=== PATIENT | male | born 1960 | race American Indian/Alaskan Native ===

== ENCOUNTER 2021-10-28 14:23 | Inpatient (IN) | payer MEDICARE, OTHER ==
[2021-10-28] MEDS: INSULIN LISPRO 100 UNIT/ML SUB-Q SCH (23:15)
[2021-10-29 05:06] LABS: Basophils % (Auto) 0.8 % (0.0-1.8); Eosinophils # (Auto) 0.1 K/mm3 (0.0-0.4); Eosinophils % (Auto) 1.4 % (0.0-4.3); Hematocrit 36.6 % (35.5-45.6); Hemoglobin 11.5 gm/dl (11.8-15.2); Lymphocytes # (Auto) 1.6 K/mm3 (1.2-5.4); Lymphocytes % (Auto) 27.2 % (13.4-35.0); Mean Corpuscular HGB Conc 32 % (32-34); Mean Corpuscular Volume 81 fl (84-94); Monocytes # (Auto) 0.6 K/mm3 (0.0-0.8); Monocytes % (Auto) 9.9 % (0.0-7.3); Red Blood Count 4.53 M/mm3 (3.65-5.03)
[2021-10-29 05:16] LABS: Alanine Aminotransferase 10 units/L (7-56); Albumin 4.1 g/dL (3.9-5); BUN/Creatinine Ratio 16; Blood Urea Nitrogen 19 mg/dL (9-20); Calcium 9.1 mg/dL (8.4-10.2); Chol/HDL Ratio 3.33 %; HDL Cholesterol 51 mg/dL (40-59); Hemolysis Index 9; LDL Cholesterol,Direct 105 mg/dL (50-130)
[2021-10-29 06:27] LABS: Platelet Count 205 K/mm3 (140-440)
[2021-10-29] MEDS: INSULIN LISPRO 100 UNIT/ML SUB-Q SCH ×4 (07:30→21:31)
[2021-10-29] MEDS ORDERED: SILDENAFIL CITRATE 50 MG PO PRN (08:44)
--- NOTE | 2021-10-29 08:44 | History and Physical Report ---
GP History & Physical - History of Present Illness Date of admission: 10/28/21 Date of Examination: 10/29/21 Reason for Admission: Danger to self, Failure of Outpatient Treatment, Severe anxiety/depression History of Present Illness: HPI: PT C/O THAT IS TRYING TO HURT HIM, HX OF DEMENTIA AND APHASIA. REPORTS THAT HER SISTER WAS WITH PATIENT TODAY WHEN HE WANDERED TO THE [facility]HB[facility] HOME. STATES THAT PT HAS NOT SLEPT IN DAYS DT HIS NEW ONSET [place], PT DENIES SI AND HI. The patient was seen today. I first evaluated this patient in the ER. He is confused, with poor insight. He is unable to give any history or insight as to what is going on with him. He responds to most questions with inappropriate answers. He does respond that he's "alright" when asking how he was doing. He believes he's at work. PSYCHIATRIC HISTORY: Unable to assess PAST MEDICAL HISTORY: None reported or document Family Psychiatric History: None reported or documented SOCIAL HISTORY Unable to obtain REVIEW OF SYSTEMS Unable to obtain MENTAL STATUS EXAMINATION Unable to obtain Assessment (1) Dementia with Behavioral Disturbance Current Visit: Yes Status: Acute TREATMENT PLAN Patient admitted for inpatient psychiatric evaluation, medication adjustment and close monitoring The patient's behavior, mood, sleep and appetite will be closely monitored. Patient enrolled in individual and group therapeutic sessions and encouraged to attend. Patient provided with a safe and structured environment. Patient's physical health needs will be addressed by the Hospitalist. Hospitalist Consulted Labs including CBC, CMP, Lipid profile and Hemoglobin A1C levels ordered for baseline reference Continue Home medications and meds started in ER Social Assessment will be completed and the Intelligence Clerk will work with patient and family to ensure a suitable and safe disposition Medication adjustment will be made as clinically indicated Usual Wellness Scientology/Preservation: - Start Trazodone 50 mg po QHS & 50 mg po QHS PRN between 10 PM & 2 AM for insomnia - Start Melatonin 5 mg po QHS to promote circadian rhythm - Start Wiseman-3 for brain health, reduce impulsivity, and as adjunctive treatment for mood disorder, continue upon discharge given overall benefits. - Start B1 prophylaxis with 200 mg po for 5 days The patient agreed on the treatment plan, understood the risk, benefit, alternative treatment, potential consequence of no treatment, and gave informed consent. Estimated days: 7 Post hospital care: primary care provider, psychiatric provider Case staffed with Dr. Cristobal Legal Status: Voluntary Reaction to Hospitalization: Accepting Medications and Allergies Allergies Allergy/AdvReac Type Severity Reaction Status Date / Time codeine Allergy Intermediate Nausea Verified 10/28/21 21:32 Home Medications Medication Instructions Recorded Confirmed Last Taken Type Ergocalciferol (Vitamin D2) 50,000 unit PO 1XW 10/28/21 10/28/21 Unknown History [Vitamin D2] Levothyroxine [Synthroid] 112 mcg PO QAM 10/28/21 10/28/21 Unknown History OLANzapine [ZyPREXA] 5 mg PO QDAY 10/28/21 10/28/21 Unknown History Sildenafil Citrate [Viagra] 50 mg PO DAILY PRN 10/28/21 10/28/21 Unknown History traZODone [Desyrel] 50 mg PO QHS 10/28/21 10/28/21 Unknown History Active Meds: Active Medications Insulin Human Lispro (Insulin Lispro 100 Unit/Ml) 0 unit SUB-Q [facility]; Protocol Last Admin: 10/28/21 23:15 Dose: 3 unit Results - Results Labs/Vitals: Laboratory Last Values WBC 5.9 K/mm3 (4.5-11.0) 10/29/21 04:32 RBC 4.53 M/mm3 (3.65-5.03) 10/29/21 04:32 Hgb 11.5 gm/dl (11.8-15.2) L 10/29/21 04:32 Hct 36.6 % (35.5-45.6) 10/29/21 04:32 MCV 81 fl (84-94) L 10/29/21 04:32 MCH 25 pg (28-32) L 10/29/21 04:32 MCHC 32 % (32-34) 10/29/21 04:32 RDW 15.0 % (13.2-15.2) 10/29/21 04:32 Plt Count 205 K/mm3 (140-440) 10/29/21 04:32 Lymph % (Auto) 27.2 % (13.4-35.0) 10/29/21 04:32 [place] % (Auto) 9.9 % (0.0-7.3) H 10/29/21 04:32 Eos % (Auto) 1.4 % (0.0-4.3) 10/29/21 04:32 Baso % (Auto) 0.8 % (0.0-1.8) 10/29/21 04:32 Lymph # (Auto) 1.6 K/mm3 (1.2-5.4) 10/29/21 04:32 [place] # (Auto) 0.6 K/mm3 (0.0-0.8) 10/29/21 04:32 Eos # (Auto) 0.1 K/mm3 (0.0-0.4) 10/29/21 04:32 Baso # (Auto) 0.0 K/mm3 (0.0-0.1) 10/29/21 04:32 Seg Neutrophils % 60.7 % (40.0-70.0) 10/29/21 04:32 Seg Neutrophils # 3.6 K/mm3 (1.8-7.7) 10/29/21 04:32 Sodium 135 mmol/L (137-145) L 10/29/21 04:32 Potassium 4.1 mmol/L (3.6-5.0) 10/29/21 04:32 Chloride 102.8 mmol/L (98-107) 10/29/21 04:32 Carbon Dioxide 20 mmol/L (22-30) L 10/29/21 04:32 Anion Gap 16 mmol/L 10/29/21 04:32 BUN 19 mg/dL (9-20) 10/29/21 04:32 Creatinine 1.2 mg/dL (0.8-1.3) 10/29/21 04:32 Estimated GFR > 60 ml/min 10/29/21 04:32 BUN/Creatinine Ratio 16 % 10/29/21 04:32 Glucose 115 mg/dL (75-100) H 10/29/21 04:32 POC Glucose 204 mg/dL (70-105) H 10/28/21 22:05 Hemoglobin A1c 5.5 % (4-6) 10/29/21 04:32 Calcium 9.1 mg/dL (8.4-10.2) 10/29/21 04:32 Total Bilirubin 0.60 mg/dL (0.1-1.2) 10/29/21 04:32 AST 10 units/L (5-40) 10/29/21 04:32 ALT 10 units/L (7-56) 10/29/21 04:32 Alkaline Phosphatase 52 units/L (35-129) 10/29/21 04:32 Total Protein 6.6 g/dL (6.3-8.2) 10/29/21 04:32 Albumin 4.1 g/dL (3.9-5) 10/29/21 04:32 Albumin/Globulin Ratio 1.6 % 10/29/21 04:32 Triglycerides 86 mg/dL (2-149) 10/29/21 04:32 Cholesterol 170 mg/dL (50-199) 10/29/21 04:32 LDL Cholesterol Direct 105 mg/dL (50-130) 10/29/21 04:32 HDL Cholesterol 51 mg/dL (40-59) 10/29/21 04:32 Cholesterol/HDL Ratio 3.33 % 10/29/21 04:32 TSH 0.032 mlU/mL (0.270-4.200) L 10/29/21 04:32 Last Vital Signs Temp 97.7 F 10/28/21 18:30 Pulse 78 10/28/21 18:30 Resp 18 10/28/21 18:30 BP 115/73 10/28/21 18:30 Pulse Ox 100 10/28/21 18:30 Physical Examination - Constitutional Vitals: Vital Signs Temp Pulse Resp BP Pulse Ox 97.7 F 78 18 115/73 100 10/28/21 18:30 10/28/21 18:30 10/28/21 18:30 10/28/21 18:30 10/28/21 18:30 Temperature -Last 24 Hours Temperature 97.7 F Mental Status Exam - Vital signs Last Vital Signs Temp 97.7 F 10/28/21 18:30 Pulse 78 10/28/21 18:30 Resp 18 10/28/21 18:30 BP 115/73 10/28/21 18:30 Pulse Ox 100 10/28/21 18:30 Physician Certification - Certification Statement Physician Certification Statement: This is an acknowledgement statement that ALEXANDER MORSE is a 61 year old M who requires inpatient psychiatric admission for treatment which could reasonably be expected to improve the patient's condition for Estimated period of time patient will need to remain in the hospital: [ ] Plan for post-hospital care: [ ]
--- NOTE | 2021-10-29 08:47 | Event Note ---
Date: 10/29/21 Attempted to speak to the pt's at [phone]. No answer and no voicemail picked up.
[2021-10-29] MEDS: LEVOTHYROXINE 112 MCG TAB PO SCH (10:26)
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
--- NOTE | 2021-10-29 14:49 | XRay Report ---
XR chest 1V ap INDICATION / CLINICAL INFORMATION: rib fracture. COMPARISON: 10/28/2021 FINDINGS: SUPPORT DEVICES: None. HEART /PULMONARY VASCULATURE: No significant abnormality. LUNGS / PLEURA: No significant pulmonary or pleural abnormality. No pneumothorax. Additional findings: No displaced rib fracture identified. IMPRESSION: 1. No acute findings. Signer Name: Jonatan De Los Santos MD Signed: 10/29/2021 2:45 PM Workstation Name: [id number]
[2021-10-29] MEDS: traZODone 50 MG TAB PO SCH (21:31)
[2021-10-30] MEDS: LEVOTHYROXINE 112 MCG TAB PO SCH (06:18)
[2021-10-30] MEDS: INSULIN LISPRO 100 UNIT/ML SUB-Q SCH ×4 (07:20→21:04)
--- NOTE | 2021-10-30 09:52 | Progress Note ---
Subjective Date of service: 10/30/21 Principal diagnosis: agitation Subjective Comment: The patient was seen today. He is calm and cooperative, but confused. He has poor insight. Spoke with the patient's spouse. She says the patient was in [place] about a few months ago. She says he was started on Invega sustenna and it really worked well for the patient. The spouse says the patient should not be started on the high dose because it doesn't work well for him, and has him like a zombie. She also says the patient takes dorzolamide 1 gtt, ANIBAL BID. Pharm says they do not have this medication. Will ask for equivalent or ask spouse to bring. REVIEW OF SYSTEMS Unable to obtain MENTAL STATUS EXAMINATION Unable to obtain Assessment (1) Dementia with Behavioral Disturbance Current Visit: Yes Status: Acute TREATMENT PLAN Patient admitted for inpatient psychiatric evaluation, medication adjustment and close monitoring The patient's behavior, mood, sleep and appetite will be closely monitored. Patient enrolled in individual and group therapeutic sessions and encouraged to attend. Patient provided with a safe and structured environment. Patient's physical health needs will be addressed by the Hospitalist. Hospitalist Consulted Labs including CBC, CMP, Lipid profile and Hemoglobin A1C levels ordered for baseline reference Invega Sustenna 156mg IM x 1 Social Assessment will be completed and the [place] Operator will work with patient and family to ensure a suitable and safe disposition Medication adjustment will be made as clinically indicated Usual Wellness Mandaeism/Preservation: - Start Trazodone 50 mg po QHS & 50 mg po QHS PRN between 10 PM & 2 AM for insomnia - Start Melatonin 5 mg po QHS to promote circadian rhythm - Start Horace-3 for brain health, reduce impulsivity, and as adjunctive treatment for mood disorder, continue upon discharge given overall benefits. - Start B1 prophylaxis with 200 mg po for 5 days The patient agreed on the treatment plan, understood the risk, benefit, alternative treatment, potential consequence of no treatment, and gave informed consent. Estimated days: 7 Post hospital care: primary care provider, psychiatric provider Case staffed with Dr. Cristobal Medications and Allergies Allergies Allergy/AdvReac Type Severity Reaction Status Date / Time codeine Allergy Intermediate Nausea Verified 10/28/21 21:32 Home Medications Medication Instructions Recorded Confirmed Last Taken Type Ergocalciferol (Vitamin D2) 50,000 unit PO 1XW 10/28/21 10/28/21 Unknown History [Vitamin D2] Levothyroxine [Synthroid] 112 mcg PO QAM 10/28/21 10/28/21 Unknown History OLANzapine [ZyPREXA] 5 mg PO QDAY 10/28/21 10/28/21 Unknown History Sildenafil Citrate [Viagra] 50 mg PO DAILY PRN 10/28/21 10/28/21 Unknown History traZODone [Desyrel] 50 mg PO QHS 10/28/21 10/28/21 Unknown History Active Meds: Active Medications Ergocalciferol (Ergocalciferol (Vit D2) 50,000 Unit Cap) 50,000 unit PO Mo [facility] Insulin Human Lispro (Insulin Lispro 100 Unit/Ml) 0 unit SUB-Q ACHS [facility]; Protocol Last Admin: 10/30/21 07:20 Dose: Not Given Levothyroxine Sodium (Levothyroxine 112 Mcg Tab) 112 mcg PO DAILY@0600 [facility] Last Admin: 10/30/21 06:18 Dose: 112 mcg Olanzapine (Olanzapine 5 Mg Tab) 5 mg PO QDAY [facility] Last Admin: 10/29/21 09:46 Dose: 5 mg Trazodone HCl (Trazodone 50 Mg Tab) 50 mg PO QHS [facility] Last Admin: 10/29/21 21:31 Dose: 50 mg Results - Results Labs/Vitals: Laboratory Last Values WBC 5.9 K/mm3 (4.5-11.0) 10/29/21 04:32 RBC 4.53 M/mm3 (3.65-5.03) 10/29/21 04:32 Hgb 11.5 gm/dl (11.8-15.2) L 10/29/21 04:32 Hct 36.6 % (35.5-45.6) 10/29/21 04:32 MCV 81 fl (84-94) L 10/29/21 04:32 MCH 25 pg (28-32) L 10/29/21 04:32 MCHC 32 % (32-34) 10/29/21 04:32 RDW 15.0 % (13.2-15.2) 10/29/21 04:32 Plt Count 205 K/mm3 (140-440) 10/29/21 04:32 Lymph % (Auto) 27.2 % (13.4-35.0) 10/29/21 04:32 [place] % (Auto) 9.9 % (0.0-7.3) H 10/29/21 04:32 Eos % (Auto) 1.4 % (0.0-4.3) 10/29/21 04:32 Baso % (Auto) 0.8 % (0.0-1.8) 10/29/21 04:32 Lymph # (Auto) 1.6 K/mm3 (1.2-5.4) 10/29/21 04:32 [place] # (Auto) 0.6 K/mm3 (0.0-0.8) 10/29/21 04:32 Eos # (Auto) 0.1 K/mm3 (0.0-0.4) 10/29/21 04:32 Baso # (Auto) 0.0 K/mm3 (0.0-0.1) 10/29/21 04:32 Seg Neutrophils % 60.7 % (40.0-70.0) 10/29/21 04:32 Seg Neutrophils # 3.6 K/mm3 (1.8-7.7) 10/29/21 04:32 Sodium 135 mmol/L (137-145) L 10/29/21 04:32 Potassium 4.1 mmol/L (3.6-5.0) 10/29/21 04:32 Chloride 102.8 mmol/L (98-107) 10/29/21 04:32 Carbon Dioxide 20 mmol/L (22-30) L 10/29/21 04:32 Anion Gap 16 mmol/L 10/29/21 04:32 BUN 19 mg/dL (9-20) 10/29/21 04:32 Creatinine 1.2 mg/dL (0.8-1.3) 10/29/21 04:32 Estimated GFR > 60 ml/min 10/29/21 04:32 BUN/Creatinine Ratio 16 % 10/29/21 04:32 Glucose 115 mg/dL (75-100) H 10/29/21 04:32 POC Glucose 129 mg/dL (70-105) H 10/30/21 06:11 Hemoglobin A1c 5.5 % (4-6) 10/29/21 04:32 Calcium 9.1 mg/dL (8.4-10.2) 10/29/21 04:32 Total Bilirubin 0.60 mg/dL (0.1-1.2) 10/29/21 04:32 AST 10 units/L (5-40) 10/29/21 04:32 ALT 10 units/L (7-56) 10/29/21 04:32 Alkaline Phosphatase 52 units/L (35-129) 10/29/21 04:32 Total Protein 6.6 g/dL (6.3-8.2) 10/29/21 04:32 Albumin 4.1 g/dL (3.9-5) 10/29/21 04:32 Albumin/Globulin Ratio 1.6 % 10/29/21 04:32 Triglycerides 86 mg/dL (2-149) 10/29/21 04:32 Cholesterol 170 mg/dL (50-199) 10/29/21 04:32 LDL Cholesterol Direct 105 mg/dL (50-130) 10/29/21 04:32 HDL Cholesterol 51 mg/dL (40-59) 10/29/21 04:32 Cholesterol/HDL Ratio 3.33 % 10/29/21 04:32 TSH 0.032 mlU/mL (0.270-4.200) L 10/29/21 04:32 Last Vital Signs Temp 98.6 F 10/30/21 08:44 Pulse 59 L 10/30/21 08:44 Resp 17 10/30/21 08:44 BP 162/77 10/30/21 08:44 Pulse Ox 99 10/30/21 08:44
[2021-10-30] MEDS ORDERED: ACETAMINOPHEN 500 MG TAB PO PRN (10:10)
[2021-10-30] MEDS ORDERED: PALIPERIDONE PALMITATE 156 MG/ML INJ IM ONE (11:00)
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
[2021-10-30] MEDS: DORZOLAMIDE/TIMOLOL(NF) OPHTH DROP 2-0.5% 10 ML OD SCH (21:04)
[2021-10-30] MEDS: traZODone 50 MG TAB PO SCH (21:04)
[2021-10-30] MEDS ORDERED: [UNRECOGNIZED DRUG - OTHER] OD SCH (22:00)
[2021-10-31] MEDS: LEVOTHYROXINE 112 MCG TAB PO SCH (06:14)
[2021-10-31] MEDS: INSULIN LISPRO 100 UNIT/ML SUB-Q SCH ×2 (07:56→21:34)
[2021-10-31] MEDS: DORZOLAMIDE/TIMOLOL(NF) OPHTH DROP 2-0.5% 10 ML OD SCH ×2 (09:35→21:34)
--- NOTE | 2021-10-31 10:32 | Progress Note ---
Subjective Date of service: 10/31/21 Principal diagnosis: agitation Subjective Comment: The patient was seen today. He is calm, and cooperative, but confused. He says he's doing alright. He denies SI/HI or hallucinations. He is reaching for things not there at times. REVIEW OF SYSTEMS Unable to obtain MENTAL STATUS EXAMINATION Unable to obtain Assessment (1) Dementia with Behavioral Disturbance Current Visit: Yes Status: Acute TREATMENT PLAN Patient admitted for inpatient psychiatric evaluation, medication adjustment and close monitoring The patient's behavior, mood, sleep and appetite will be closely monitored. Patient enrolled in individual and group therapeutic sessions and encouraged to attend. Patient provided with a safe and structured environment. Patient's physical health needs will be addressed by the Hospitalist. Hospitalist Consulted Labs including CBC, CMP, Lipid profile and Hemoglobin A1C levels ordered for baseline reference Invega Sustenna 156mg IM x 1 yesterday Continue meds Social Assessment will be completed and the [employer] Director will work with patient and family to ensure a suitable and safe disposition Medication adjustment will be made as clinically indicated Usual Wellness Taoism/Preservation: - Start Trazodone 50 mg po QHS & 50 mg po QHS PRN between 10 PM & 2 AM for insomnia - Start Melatonin 5 mg po QHS to promote circadian rhythm - Start [place]-3 for brain health, reduce impulsivity, and as adjunctive treatment for mood disorder, continue upon discharge given overall benefits. - Start B1 prophylaxis with 200 mg po for 5 days The patient agreed on the treatment plan, understood the risk, benefit, alternative treatment, potential consequence of no treatment, and gave informed consent. Estimated days: 7 Post hospital care: primary care provider, psychiatric provider Case staffed with Dr. Cristobal Medications and Allergies Allergies Allergy/AdvReac Type Severity Reaction Status Date / Time codeine Allergy Intermediate Nausea Verified 10/28/21 21:32 Home Medications Medication Instructions Recorded Confirmed Last Taken Type Ergocalciferol (Vitamin D2) 50,000 unit PO 1XW 10/28/21 10/28/21 Unknown History [Vitamin D2] Levothyroxine [Synthroid] 112 mcg PO QAM 10/28/21 10/28/21 Unknown History OLANzapine [ZyPREXA] 5 mg PO QDAY 10/28/21 10/28/21 Unknown History Sildenafil Citrate [Viagra] 50 mg PO DAILY PRN 10/28/21 10/28/21 Unknown History traZODone [Desyrel] 50 mg PO QHS 10/28/21 10/28/21 Unknown History Active Meds: Active Medications Acetaminophen (Acetaminophen 500 Mg Tab) 500 mg PO Q6H PRN PRN Reason: Pain, Mild (1-3) Last Admin: 10/30/21 10:41 Dose: 500 mg Dorzolamide/Timolol (Dorzolamide/Timolol(Nf) Ophth Drop 2-0.5% 10 Ml) 1 drops OD BID [facility] Last Admin: 10/31/21 09:35 Dose: Not Given Ergocalciferol (Ergocalciferol (Vit D2) 50,000 Unit Cap) 50,000 unit PO Mo [facility] Insulin Human Lispro (Insulin Lispro 100 Unit/Ml) 0 unit SUB-Q ACHS [facility]; Pr otocol Last Admin: 10/31/21 07:56 Dose: Not Given Levothyroxine Sodium (Levothyroxine 112 Mcg Tab) 112 mcg PO DAILY@0600 [facility] Last Admin: 10/31/21 06:14 Dose: 112 mcg Olanzapine (Olanzapine 5 Mg Tab) 5 mg PO QDAY [facility] Last Admin: 10/31/21 09:35 Dose: 5 mg Trazodone HCl (Trazodone 50 Mg Tab) 50 mg PO QHS [facility] Last Admin: 10/30/21 21:04 Dose: 50 mg Results - Results Labs/Vitals: Laboratory Last Values WBC 5.9 K/mm3 (4.5-11.0) 10/29/21 04:32 RBC 4.53 M/mm3 (3.65-5.03) 10/29/21 04:32 Hgb 11.5 gm/dl (11.8-15.2) L 10/29/21 04:32 Hct 36.6 % (35.5-45.6) 10/29/21 04:32 MCV 81 fl (84-94) L 10/29/21 04:32 MCH 25 pg (28-32) L 10/29/21 04:32 MCHC 32 % (32-34) 10/29/21 04:32 RDW 15.0 % (13.2-15.2) 10/29/21 04:32 Plt Count 205 K/mm3 (140-440) 10/29/21 04:32 Lymph % (Auto) 27.2 % (13.4-35.0) 10/29/21 04:32 [place] % (Auto) 9.9 % (0.0-7.3) H 10/29/21 04:32 Eos % (Auto) 1.4 % (0.0-4.3) 10/29/21 04:32 Baso % (Auto) 0.8 % (0.0-1.8) 10/29/21 04:32 Lymph # (Auto) 1.6 K/mm3 (1.2-5.4) 10/29/21 04:32 [place] # (Auto) 0.6 K/mm3 (0.0-0.8) 10/29/21 04:32 Eos # (Auto) 0.1 K/mm3 (0.0-0.4) 10/29/21 04:32 Baso # (Auto) 0.0 K/mm3 (0.0-0.1) 10/29/21 04:32 Seg Neutrophils % 60.7 % (40.0-70.0) 10/29/21 04:32 Seg Neutrophils # 3.6 K/mm3 (1.8-7.7) 10/29/21 04:32 Sodium 135 mmol/L (137-145) L 10/29/21 04:32 Potassium 4.1 mmol/L (3.6-5.0) 10/29/21 04:32 Chloride 102.8 mmol/L (98-107) 10/29/21 04:32 Carbon Dioxide 20 mmol/L (22-30) L 10/29/21 04:32 Anion Gap 16 mmol/L 10/29/21 04:32 BUN 19 mg/dL (9-20) 10/29/21 04:32 Creatinine 1.2 mg/dL (0.8-1.3) 10/29/21 04:32 Estimated GFR > 60 ml/min 10/29/21 04:32 BUN/Creatinine Ratio 16 % 10/29/21 04:32 Glucose 115 mg/dL (75-100) H 10/29/21 04:32 POC Glucose 115 mg/dL (70-105) H 10/31/21 06:19 Hemoglobin A1c 5.5 % (4-6) 10/29/21 04:32 Calcium 9.1 mg/dL (8.4-10.2) 10/29/21 04:32 Total Bilirubin 0.60 mg/dL (0.1-1.2) 10/29/21 04:32 AST 10 units/L (5-40) 10/29/21 04:32 ALT 10 units/L (7-56) 10/29/21 04:32 Alkaline Phosphatase 52 units/L (35-129) 10/29/21 04:32 Total Protein 6.6 g/dL (6.3-8.2) 10/29/21 04:32 Albumin 4.1 g/dL (3.9-5) 10/29/21 04:32 Albumin/Globulin Ratio 1.6 % 10/29/21 04:32 Triglycerides 86 mg/dL (2-149) 10/29/21 04:32 Cholesterol 170 mg/dL (50-199) 10/29/21 04:32 LDL Cholesterol Direct 105 mg/dL (50-130) 10/29/21 04:32 HDL Cholesterol 51 mg/dL (40-59) 10/29/21 04:32 Cholesterol/HDL Ratio 3.33 % 10/29/21 04:32 TSH 0.032 mlU/mL (0.270-4.200) L 10/29/21 04:32 Last Vital Signs Temp 97.7 F 10/30/21 19:48 Pulse 66 10/30/21 19:49 Resp 17 10/30/21 19:48 BP 123/72 10/30/21 19:48 Pulse Ox 99 10/30/21 19:49
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
[2021-10-31] MEDS: ERGOCALCIFEROL (VIT D2) 50,000 UNIT CAP PO SCH ×2 (11:10→11:43)
[2021-10-31] MEDS: traZODone 50 MG TAB PO SCH (21:34)
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
[2021-11-01] MEDS: LEVOTHYROXINE 112 MCG TAB PO SCH (07:28)
[2021-11-01] MEDS: INSULIN LISPRO 100 UNIT/ML SUB-Q SCH ×4 (08:13→21:40)
[2021-11-01] MEDS: DORZOLAMIDE/TIMOLOL(NF) OPHTH DROP 2-0.5% 10 ML OD SCH ×2 (09:13→21:41)
--- NOTE | 2021-11-01 11:19 | Progress Note ---
Subjective Date of service: 11/01/21 Principal diagnosis: Dementia with Behaviral Disturbance Subjective Comment: The patient was seen today. He is calm, and cooperative, but confused. The patient doesn't respond appropriately to some questioning. It's unclear if he is hard of hearing. He says he slept well. When asked about any thoughts of self harm, the patient replies "yea, it's like that sometimes." I ask him about hallucinations, he says "I can't really tell." He does stat that he feels "pretty good." REVIEW OF SYSTEMS Unable to obtain MENTAL STATUS EXAMINATION Unable to obtain Assessment (1) Dementia with Behavioral Disturbance Current Visit: Yes Status: Acute TREATMENT PLAN Patient admitted for inpatient psychiatric evaluation, medication adjustment and close monitoring The patient's behavior, mood, sleep and appetite will be closely monitored. Patient enrolled in individual and group therapeutic sessions and encouraged to attend. Patient provided with a safe and structured environment. Patient's physical health needs will be addressed by the Hospitalist. Hospitalist Consulted Labs including CBC, CMP, Lipid profile and Hemoglobin A1C levels ordered for baseline reference Invega Sustenna 156mg IM x 1 given 10/30 Continue meds Social Assessment will be completed and the Resident Engineer will work with patient and family to ensure a suitable and safe disposition Medication adjustment will be made as clinically indicated Usual Wellness Evangelical/Preservation: - Start Trazodone 50 mg po QHS & 50 mg po QHS PRN between 10 PM & 2 AM for insomnia - Start Melatonin 5 mg po QHS to promote circadian rhythm - Start [place]-3 for brain health, reduce impulsivity, and as adjunctive treatment for mood disorder, continue upon discharge given overall benefits. - Start B1 prophylaxis with 200 mg po for 5 days The patient agreed on the treatment plan, understood the risk, benefit, alternative treatment, potential consequence of no treatment, and gave informed consent. Estimated days: 7 Post hospital care: primary care provider, psychiatric provider Case staffed with Dr. Cristobal Medications and Allergies Allergies Allergy/AdvReac Type Severity Reaction Status Date / Time codeine Allergy Intermediate Nausea Verified 10/28/21 21:32 Home Medications Medication Instructions Recorded Confirmed Last Taken Type Ergocalciferol (Vitamin D2) 50,000 unit PO 1XW 10/28/21 10/28/21 Unknown History [Vitamin D2] Levothyroxine [Synthroid] 112 mcg PO QAM 10/28/21 10/28/21 Unknown History OLANzapine [ZyPREXA] 5 mg PO QDAY 10/28/21 10/28/21 Unknown History Sildenafil Citrate [Viagra] 50 mg PO DAILY PRN 10/28/21 10/28/21 Unknown History traZODone [Desyrel] 50 mg PO QHS 10/28/21 10/28/21 Unknown History Active Meds: Active Medications Acetaminophen (Acetaminophen 500 Mg Tab) 500 mg PO Q6H PRN PRN Reason: Pain, Mild (1-3) Last Admin: 10/30/21 10:41 Dose: 500 mg Dorzolamide/Timolol (Dorzolamide/Timolol(Nf) Ophth Drop 2-0.5% 10 Ml) 1 drops OD BID [facility] Last Admin: 11/01/21 09:13 Dose: Not Given Ergocalciferol (Ergocalciferol (Vit D2) 50,000 Unit Cap) 50,000 unit PO Mo [facility] Last Admin: 10/31/21 11:43 Dose: 50,000 unit Insulin Human Lispro (Insulin Lispro 100 Unit/Ml) 0 unit SUB-Q [facility]; Protocol Last Admin: 11/01/21 08:13 Dose: Not Given Levothyroxine Sodium (Levothyroxine 112 Mcg Tab) 112 mcg PO DAILY@0600 [facility] Last Admin: 11/01/21 07:28 Dose: 112 mcg Olanzapine (Olanzapine 5 Mg Tab) 5 mg PO QDAY [facility] Last Admin: 11/01/21 09:13 Dose: Not Given Trazodone HCl (Trazodone 50 Mg Tab) 50 mg PO QHS [facility] Last Admin: 10/31/21 21:34 Dose: 50 mg Results - Results Labs/Vitals: Laboratory Last Values WBC 5.9 K/mm3 (4.5-11.0) 10/29/21 04:32 RBC 4.53 M/mm3 (3.65-5.03) 10/29/21 04:32 Hgb 11.5 gm/dl (11.8-15.2) L 10/29/21 04:32 Hct 36.6 % (35.5-45.6) 10/29/21 04:32 MCV 81 fl (84-94) L 10/29/21 04:32 MCH 25 pg (28-32) L 10/29/21 04:32 MCHC 32 % (32-34) 10/29/21 04:32 RDW 15.0 % (13.2-15.2) 10/29/21 04:32 Plt Count 205 K/mm3 (140-440) 10/29/21 04:32 Lymph % (Auto) 27.2 % (13.4-35.0) 10/29/21 04:32 [place] % (Auto) 9.9 % (0.0-7.3) H 10/29/21 04:32 Eos % (Auto) 1.4 % (0.0-4.3) 10/29/21 04:32 Baso % (Auto) 0.8 % (0.0-1.8) 10/29/21 04:32 Lymph # (Auto) 1.6 K/mm3 (1.2-5.4) 10/29/21 04:32 [place] # (Auto) 0.6 K/mm3 (0.0-0.8) 10/29/21 04:32 Eos # (Auto) 0.1 K/mm3 (0.0-0.4) 10/29/21 04:32 Baso # (Auto) 0.0 K/mm3 (0.0-0.1) 10/29/21 04:32 Seg Neutrophils % 60.7 % (40.0-70.0) 10/29/21 04:32 Seg Neutrophils # 3.6 K/mm3 (1.8-7.7) 10/29/21 04:32 Sodium 135 mmol/L (137-145) L 10/29/21 04:32 Potassium 4.1 mmol/L (3.6-5.0) 10/29/21 04:32 Chloride 102.8 mmol/L (98-107) 10/29/21 04:32 Carbon Dioxide 20 mmol/L (22-30) L 10/29/21 04:32 Anion Gap 16 mmol/L 10/29/21 04:32 BUN 19 mg/dL (9-20) 10/29/21 04:32 Creatinine 1.2 mg/dL (0.8-1.3) 10/29/21 04:32 Estimated GFR > 60 ml/min 10/29/21 04:32 BUN/Creatinine Ratio 16 % 10/29/21 04:32 Glucose 115 mg/dL (75-100) H 10/29/21 04:32 POC Glucose 109 mg/dL (70-105) H 11/01/21 07:26 Hemoglobin A1c 5.5 % (4-6) 10/29/21 04:32 Calcium 9.1 mg/dL (8.4-10.2) 10/29/21 04:32 Total Bilirubin 0.60 mg/dL (0.1-1.2) 10/29/21 04:32 AST 10 units/L (5-40) 10/29/21 04:32 ALT 10 units/L (7-56) 10/29/21 04:32 Alkaline Phosphatase 52 units/L (35-129) 10/29/21 04:32 Total Protein 6.6 g/dL (6.3-8.2) 10/29/21 04:32 Albumin 4.1 g/dL (3.9-5) 10/29/21 04:32 Albumin/Globulin Ratio 1.6 % 10/29/21 04:32 Triglycerides 86 mg/dL (2-149) 10/29/21 04:32 Cholesterol 170 mg/dL (50-199) 10/29/21 04:32 LDL Cholesterol Direct 105 mg/dL (50-130) 10/29/21 04:32 HDL Cholesterol 51 mg/dL (40-59) 10/29/21 04:32 Cholesterol/HDL Ratio 3.33 % 10/29/21 04:32 TSH 0.032 mlU/mL (0.270-4.200) L 10/29/21 04:32 Last Vital Signs Temp 97.8 F 11/01/21 08:51 Pulse 89 11/01/21 08:51 Resp 16 11/01/21 08:51 BP 156/94 11/01/21 08:51 Pulse Ox 99 11/01/21 08:51
[2021-11-01] MEDS: traZODone 50 MG TAB PO SCH (21:41)
[2021-11-01] MEDS ORDERED: LORazepam 2 MG/ML VIAL IM ONE (23:30)
[2021-11-02] MEDS: LEVOTHYROXINE 112 MCG TAB PO SCH ×2 (05:29→05:45)
[2021-11-02] MEDS: INSULIN LISPRO 100 UNIT/ML SUB-Q SCH ×3 (08:13→11:34)
[2021-11-02] MEDS: DORZOLAMIDE/TIMOLOL(NF) OPHTH DROP 2-0.5% 10 ML OD SCH (09:02)
[2021-11-02] MEDS ORDERED: clonazePAM 0.5 MG TAB PO NR (10:27)
--- NOTE | 2021-11-02 10:29 | Discharge Summary ---
Providers - Providers Date of Admission: 10/28/21 21:44 Date of discharge: 11/02/21 Attending physician: MEHUL COSME MD 10/28/21 17:32 Consult to Physician [CONS] Routine Comment: Consulting Provider: OG LINARES Physician Instructions: Reason For Exam: manage medical conditions Primary care physician: MEHUL COSME MD Hospitalization Reason for admission: agitation Admitting Diagnosis: F02.81 - DEMENTIA IN OTH DISEASES CLASSD ELSWHR W BEHAVIORAL DISTURB Condition: Stable Hospital course: The patient was provided inpatient psychiatric treatment with safe and supportive environment, group/individual therapy, psychiatric medication, medication adjustment, adverse effect monitor, medical evaluation, medical treatment, social service assessment, social support meeting, placement assessment and psycho-education. The patients mood, cognition, behavior, motivation, compliance to treatment and appreciation on family/social support are improved and stabilized. At the time of discharge, the patient had no suicidal ideas, no homicidal ideas, no aggressive thoughts, no endangering behavior and no debilitating adverse effects. The patient agreed on the treatment plan, understood the risk, benefit, alternative treatment, potential consequence of no treatment, and gave informed consent. 11/02 The patient was seen today. He is calm and cooperative. He is confused, but pleasant. I spoke to his spouse today and informed her of the patient's p rogress, plan and readiness for discharge. She is in agreement with plan. Disposition: 01 HOME / SELF CARE / HOMELESS Time spent for discharge: 35 Allergies/Adverse Reactions: Allergies codeine Allergy (Intermediate, Verified 10/28/21 21:32) Nausea Vital Signs: Last Vital Signs Temp 98.7 F 11/01/21 19:34 Pulse 82 11/01/21 19:34 Resp 18 11/01/21 19:34 BP 139/82 11/01/21 19:34 Pulse Ox 99 11/01/21 19:34 Last Lab: Laboratory Last Values WBC 5.9 K/mm3 (4.5-11.0) 10/29/21 04:32 RBC 4.53 M/mm3 (3.65-5.03) 10/29/21 04:32 Hgb 11.5 gm/dl (11.8-15.2) L 10/29/21 04:32 Hct 36.6 % (35.5-45.6) 10/29/21 04:32 MCV 81 fl (84-94) L 10/29/21 04:32 MCH 25 pg (28-32) L 10/29/21 04:32 MCHC 32 % (32-34) 10/29/21 04:32 RDW 15.0 % (13.2-15.2) 10/29/21 04:32 Plt Count 205 K/mm3 (140-440) 10/29/21 04:32 Lymph % (Auto) 27.2 % (13.4-35.0) 10/29/21 04:32 [place] % (Auto) 9.9 % (0.0-7.3) H 10/29/21 04:32 Eos % (Auto) 1.4 % (0.0-4.3) 10/29/21 04:32 Baso % (Auto) 0.8 % (0.0-1.8) 10/29/21 04:32 Lymph # (Auto) 1.6 K/mm3 (1.2-5.4) 10/29/21 04:32 [place] # (Auto) 0.6 K/mm3 (0.0-0.8) 10/29/21 04:32 Eos # (Auto) 0.1 K/mm3 (0.0-0.4) 10/29/21 04:32 Baso # (Auto) 0.0 K/mm3 (0.0-0.1) 10/29/21 04:32 Seg Neutrophils % 60.7 % (40.0-70.0) 10/29/21 04:32 Seg Neutrophils # 3.6 K/mm3 (1.8-7.7) 10/29/21 04:32 Sodium 135 mmol/L (137-145) L 10/29/21 04:32 Potassium 4.1 mmol/L (3.6-5.0) 10/29/21 04:32 Chloride 102.8 mmol/L (98-107) 10/29/21 04:32 Carbon Dioxide 20 mmol/L (22-30) L 10/29/21 04:32 Anion Gap 16 mmol/L 10/29/21 04:32 BUN 19 mg/dL (9-20) 10/29/21 04:32 Creatinine 1.2 mg/dL (0.8-1.3) 10/29/21 04:32 Estimated GFR > 60 ml/min 10/29/21 04:32 BUN/Creatinine Ratio 16 % 10/29/21 04:32 Glucose 115 mg/dL (75-100) H 10/29/21 04:32 POC Glucose 156 mg/dL (70-105) H 11/02/21 06:40 Hemoglobin A1c 5.5 % (4-6) 10/29/21 04:32 Calcium 9.1 mg/dL (8.4-10.2) 10/29/21 04:32 Total Bilirubin 0.60 mg/dL (0.1-1.2) 10/29/21 04:32 AST 10 units/L (5-40) 10/29/21 04:32 ALT 10 units/L (7-56) 10/29/21 04:32 Alkaline Phosphatase 52 units/L (35-129) 10/29/21 04:32 Total Protein 6.6 g/dL (6.3-8.2) 10/29/21 04:32 Albumin 4.1 g/dL (3.9-5) 10/29/21 04:32 Albumin/Globulin Ratio 1.6 % 10/29/21 04:32 Triglycerides 86 mg/dL (2-149) 10/29/21 04:32 Cholesterol 170 mg/dL (50-199) 10/29/21 04:32 LDL Cholesterol Direct 105 mg/dL (50-130) 10/29/21 04:32 HDL Cholesterol 51 mg/dL (40-59) 10/29/21 04:32 Cholesterol/HDL Ratio 3.33 % 10/29/21 04:32 TSH 0.032 mlU/mL (0.270-4.200) L 10/29/21 04:32 Core Measure Documentation - Palliative Care Palliative Care/ Comfort Measures: Not Applicable - Core Measures Any of the following diagnoses?: none Exam - Constitutional Vitals: Temp Pulse Resp BP Pulse Ox 98.7 F 82 18 139/82 99 11/01/21 19:34 11/01/21 19:34 11/01/21 19:34 11/01/21 19:34 11/01/21 19:34 General appearance: Present: no acute distress - EENT Eyes: Present: PERRL, EOM intact ENT: hearing intact, clear oral mucosa - Neck Neck: Present: supple, normal ROM - Respiratory Respiratory effort: normal Plan Activity: advance as tolerated Weight Bearing Status: Weight Bear as Tolerated Care Plan Goals: Maintain good and stable mental health Plan of Treatment: The patient should be compliant with medications, not to use drugs and not to drink alcohol.The patient understands that if suicidal ideas, homicidal ideas, or any endangering thoughts/behavior arise, they should immediately seek for emergent assistance including but not limited to crisis hot line and emergency room. Follow up with outpatient Psychiatrist and PCP within 7 - 14 days of discharge. Assessment: Dementia with Behavioral Disturbance Follow up with: MEHUL COSME MD [Primary Care Provider] - 7 Days Prescriptions: OLANzapine [ZyPREXA] 5 mg PO QDAY #30
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
[2021-11-02 16:42] VITALS: BP 138/67
== END 2021-11-02 13:00 | disposition home or self-care (01) | DRG 884 ==
LOC: 3A 14:23 → UNDOADMIN 14:23 → 5A 21:44
PROVIDERS: ADMIT Psychiatry & Neurology Psychiatry; ATTEND Psychiatry & Neurology Psychiatry
DX: F03.91 Unspecified dementia, unspecified severity, with behavioral disturbance (principal); F23 Brief psychotic disorder; E87.1 Hypo-osmolality and hyponatremia; E03.9 Hypothyroidism, unspecified; E11.9 Type 2 diabetes mellitus without complications; I27.20 Pulmonary hypertension, unspecified; I10 Essential (primary) hypertension
CPT/HCPCS: 36415; 71045; 80048; 80053; 80061; 80307; 80320; 81001; 82962; 83036; 84443; 85025; G0378; Q9967; G0480; J1815; J2060; J2426; U0003